=== PATIENT | male | born 1950 | race Caucasian/White ===

== ENCOUNTER → 2023-10-26 10:14 | Outpatient (REF) | payer MEDICARE, OTHER, SELFPAY | LOC: HWRAD 10:14 | PROVIDERS: ATTENDING PHYSICIAN Specialist; FAMILY PHYSICIAN Family Medicine | DX: N40.1 Benign prostatic hyperplasia with lower urinary tract symptoms (principal); R31.21 Asymptomatic microscopic hematuria | CPT/HCPCS: 76770 ==

== ENCOUNTER 2024-02-16 06:37 | Day surgery (SDC) | payer MEDICARE, OTHER, SELFPAY ==
[2024-02-16 13:32] VITALS: BMI 24.4
[2024-02-16 13:33] VITALS: BMI 24.4
[2024-02-16 13:39] VITALS: BP 137/64
[2024-02-16 14:19] VITALS: BP 103/53
[2024-02-16 14:30] VITALS: BP 101/74
[2024-02-16 14:41] VITALS: BP 139/60
== END 2024-02-16 14:55 | disposition home or self-care (01) ==
LOC: GI 06:37
PROVIDERS: ATTENDING PHYSICIAN Internal Medicine Gastroenterology
DX: K22.0 Achalasia of cardia (principal); K22.89 Other specified disease of esophagus
CPT/HCPCS: 43236; J0585

== ENCOUNTER → 2024-05-18 10:50 | Outpatient (REF) | payer MEDICARE, OTHER, SELFPAY | LOC: HWRAD 10:50 | PROVIDERS: ATTENDING PHYSICIAN Family Medicine; REFERRING PHYSICIAN Specialist | DX: N28.1 Cyst of kidney, acquired (principal) | CPT/HCPCS: 76775 ==